=== PATIENT | male | born 1990 | race Caucasian/White ===

== ENCOUNTER 2017-03-23 20:06 | Emergency (ER) | payer OTHER ==
[~2017-03-23] VITALS: Ht 185.4 cm; Wt 120.2 kg
--- NOTE | ~2017-03-23 | CR126 ---
[facility]. [facility] A Service of [facility] & [facility] RADIOLOGY TEXT RESULTS PATIENT: ISHMAEL WOODRUFF LOCATION: SED : 86 UNIT #: [id number] AGE: [address]: Norman Downs SEX: M ORDER DR: [id number] [place] [id number] E MR#: [id number] #: [id number] NAME: ISHMAEL WOODRUFF : 1990 SEX: M STUDY DATE/TIME: 03/23/2017 21:50 UNIT: SED ROOM: STUDY DESCRIPTION: CR Foot Complete Min 3 View Lt Attending Physician: Norman Downs Ordering Physician: Norman Downs Primary Care Physician: Rena Gonzalez A.P.R.N. MEDICAL IMAGING REPORT This report is preliminary unless electronic signature is present. EXAM Left foot 03/23/2017 HISTORY 26-year-old male with left foot pain and swelling for 4 days. No specific injury. COMPARISON None. FINDINGS 3 views of the left foot demonstrate no acute fracture or dislocation. Soft tissues are unremarkable. No joint effusion. IMPRESSION Unremarkable left foot. Dictated by... Alirio Will M.D. THIS IS AN ELECTRONICALLY VERIFIED REPORT Alirio Will M.D. at 03/24/2017 4:14 PM PARKER/[email or web address] TD: 03/24/2017 10:45 JOB #: [id number] MEDICAL IMAGING REPORT Page 1 of 1
[~2017-03-23 20:06] MED LIST: BENTYL20 MG PO; CIPRO PO; FLAGYL PO; IBUPROFEN800 MG PO; KEFLEX500 MG PO; LEVAQUIN PO; METRONIDAZOLE PO; NO MEDICATIONS; PRILOSEC20 MG PO
[2017-03-23] MEDS ORDERED: [UNRECOGNIZED DRUG - OTHER] (21:03)
== END 2017-03-23 22:57 | disposition home or self-care (01) ==
LOC: SED 20:06
DX: S93.602A Unspecified sprain of left foot, initial encounter (principal); E03.9 Hypothyroidism, unspecified; R56.9 Unspecified convulsions; Z79.899 Other long term (current) drug therapy; X58.XXXA Exposure to other specified factors, initial encounter; Y92.009 Unspecified place in unspecified non-institutional (private) residence as the place of occurrence of the external cause
CPT/HCPCS: 29540; 73630; 99283